=== PATIENT | male | born 1995 | race Asian ===

== ENCOUNTER 2016-10-22 16:57 | Emergency (ER) | payer OTHER ==
[~2016-10-22] VITALS: Ht 180.3 cm; Wt 94.0 kg
[2016-10-22 17:01] VITALS: BP 158/93
[2016-10-22] MEDS ORDERED: DIPH,PERTUSS(ACELL),TET VAC/PF 0.5 ML IM-VACC ONE ×2 (17:36→18:00)
[2016-10-22] MEDS ORDERED: BACITRACIN ZINC OINT 500U/GM, 0.9 GM ONE ×3 (17:37→18:08)
[2016-10-22] MEDS ORDERED: LIDOCAINE 1%, 20ML ONE (17:42)
[2016-10-22] MEDS ORDERED: IBUPROFEN 200 MG TABLET ONE (17:59)
[2016-10-22] MEDS ORDERED: IBUPROFEN 200 MG TABLET PO ONE (18:00)
[2016-10-22] MEDS ORDERED: LIDOCAINE 1%, 20ML SQ ONE (18:00)
== END 2016-10-22 19:10 | disposition home or self-care (01) ==
LOC: ED 19:04
DX: S61.314A Laceration without foreign body of right ring finger with damage to nail, initial encounter (principal); S50.811A Abrasion of right forearm, initial encounter; S60.511A Abrasion of right hand, initial encounter; S60.512A Abrasion of left hand, initial encounter; S80.212A Abrasion, left knee, initial encounter; Z23 Encounter for immunization; W19.XXXA Unspecified fall, initial encounter; Y99.8 Other external cause status; Y93.89 Activity, other specified; Y92.009 Unspecified place in unspecified non-institutional (private) residence as the place of occurrence of the external cause
CPT/HCPCS: 11760; 90471; 90715; 99284; J3490